=== PATIENT | female | born 1960 | race Caucasian/White ===

== ENCOUNTER 2018-07-05 17:27 | Emergency (ER) | payer BC ==
[2018-07-05 18:06] VITALS: BP 131/65
--- OUTSIDE RECORDS SUMMARY | 2018-07-05 18:27 | XMS REPORT ---
:1960 External Reference #:[id number] Author Organization [employer] Address [address] [place] [address] [place] [address] Phone [phone] Care Team Providers Name Role Phone Morgan Mayorga MD Primary Care Physician Unavailable Payers Type Date Identification Numbers Payment Provider Subscriber Commercial Policy Number: [id number] [facility] Sharath Malave PayID: [id number] [address] [place] [address] Problems Description No Information Family History Date Family Member(s) Problem(s) Comments Father Arthritis Mother Hypertension Social History Type Date Description Comments Lives With Spouse 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 ETOH Use Currently consumes alcohol one drink per day Smoking Patient has never smoked Exercise Type/Frequency Exercises regularly Allergies, Adverse Reactions, Alerts Date Description Reaction Status Severity Comments 05/18/2018 Codeine active 05/18/2018 Cortisone active Medications Medication Date Status Form Strength Qnty SIG Indications Ordering Provider Xolair Active Solution 150mg injection 2 Unknown 000 Rec times per month Medications Administered in Office Medication Date Status Form Strength Qnty SIG Indications Ordering Provider Triamcinolone Injection Zaneb (Kenalog) 2017 MD Ancelmo Vital Signs Date Vital Result Comment 07/01/2018 Height 63 inches 5'3" Weight 175.00 lb BP Systolic 120 mmHg BP Diastolic 70 mmHg Respiratory Rate 18 /min Pain Level 3 BMI (Body Mass Index) 31.0 kg/m2 05/18/2018 Height 63 inches 5'3" Weight 175.00 lb Heart Rate 76 /min BP Systolic Sitting 120 mmHg BP Diastolic Sitting 76 mmHg Respiratory Rate 16 /min Body Temperature 98.0 F Pain Level 3 BMI (Body Mass Index) 31.0 kg/m2 Results Description No Information Procedures Date CPT Code Description Status 05/18/2018 55215 Inject/Drain Joint/Bursa Major W/O US Completed Encounters Type Date Location Provider CPT E/M Dx Office Visit 05/18/2018 9:00a [facility] [place] [address] M75.31 [place] M75.42 M19.212 M19.012 Plan of Care Future Appointment(s):08/24/2018 1:30 pm - Mike Ag MD at [facility]
--- OUTSIDE RECORDS SUMMARY | 2018-07-05 18:27 | XMS REPORT ---
:1960 External Reference #:[id number] Author Organization [facility] Address [address] [place] [address] Phone [phone] Care Team Providers Name Role Phone Karan Jalloh M.D. Care Team Information Immunology Specialist Unavailable Morgan Mayorga M.D. Primary Care Physician Unavailable Payers Type Date Identification Numbers Payment Provider Subscriber Commercial Effective: Policy Number: [id number] [facility] Sharath Malave 1997 Healthcare Group Number: [id number] [address] Group Name: [place] [address] PayID: [id number] Problems Date Description Provider Status Onset: 04/14/2013 Extrinsic asthma without status Vianney Paul M.D. Active asthmaticus Onset: 04/14/2013 Allergic rhinitis Vianney Paul M.D. Active Onset: 04/14/2013 Allergic rhinitis due to pollen Vianney Paul M.D. Active Onset: 12/08/2016 Uncomplicated severe persistent Ronit PENELOPE Briceno Active asthma Onset: 06/19/2016 Body mass index (BMI) 19.9 or less, CINTHIA Krishna Active adult Onset: 01/21/2016 Body mass index 30+ - obesity Elpidio Bunch M.D. Active Onset: 08/23/2015 Body mass index 25-29 - overweight Jose Garcia M.D. Active Onset: 06/20/2015 Asthma Antonietta Johnson M.D. Active Onset: 06/20/2015 Allergic rhinitis due to animals Antonietta Johnson M.D. 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 Use Consumes 1 glass of wine per day Smoking Patient has never smoked Recreational Drug Use Denies Drug Use Allergies, Adverse Reactions, Alerts Date Description Reaction Status Severity Comments 08/27/2012 Codeine active abdominal 08/27/2012 Prednisone active causes high anxiety 07/27/2017 ALL Steroids active Causes high anxiety Medications Medication Date Status Form Strength Qnty SIG Indications Ordering Provider Levalbuterol 09/04 Active Aerosol 45mcg/Act 30gm 2 puffs every Ronit Tartrate 4-6 hours as Uldrich, needed for MANAGER PAYMENT-C cough, wheezing, shortness of breath and chest tightness Sterile Water 10/20 Active Solution 40uni Use To Vianney For Injection ts Reconstitute Marquis Paul. Onelia.DCamilla Single-Dose Vial(S), Discard After Use. Needle 25G X / Active [id number] 8unit For Use With Vianney s Xolair. Eileen Paul Xolair 06/23 Active Solution 150mg 4unit Reconstitute Rec s Each Of 2 Vials Dagobertorn, With 1.4ML M.D. Sterile Water. Inject 1.2ML Subcutaneously From 1St Vial And 0.6ML Sub-Q From 2ND Via Fexofenadine 05/17 Active Tablets 180mg 90tab 1 by mouth s every day as McNairnindu M.D. Medications Administered in Office Medication Date Status Form Strength Qnty SIG Indications Ordering Provider Xolair Administered Injection Shreyas Armas.DCamilla Xolair Administered Injection Antonietta Johnson M.D. Xolair Administered Injection Ronit 018 Uldrich, MANAGER PAYMENT-C Xolair Administered Injection Shreyas Mason M.D. Xolair Administered Injection Antonietta Rousseau Shreyas Johnson M.D. Xolair Administered Injection Ronit 018 Uldrich, MANAGER PAYMENT-C Xolair Administered Injection Antonietta Pritchett Eileen Johnson Xolair Administered Injection Ronit 018 Uldrich, MANAGER PAYMENT-C Xolair Administered Injection Ronit 018 Uldrich, MANAGER PAYMENT-C Xolair Administered Injection Ronit 018 Uldrich, MANAGER PAYMENT-C Xolair Administered Injection Antonietta Jackman Eileen Johnson Xolair Administered Injection Ronit 017 [place]rich, MANAGER PAYMENT-C Xolair Administered Injection Ronit 017 Uldrich, MANAGER PAYMENT-C Xolair Administered Injection Ronit 017 Uldrich, MANAGER PAYMENT-C Xolair Administered Injection Ronit 017 Uldrich, MANAGER PAYMENT-C Xolair Administered Injection Ronit 017 Uldrich, MANAGER PAYMENT-C Xolair Administered Injection Ronit 017 Uldrich, MANAGER PAYMENT-C Xolair Administered Injection Vianney Paul, Augustina Arellano Xolair Administered Injection Antonietta Jackman Eileen Johnson Xolair Administered Injection Ronit 017 [place]rich, MANAGER PAYMENT-C Xolair Administered Injection Ronit 017 Uldrich, MANAGER PAYMENT-C Xolair Administered Injection Ronit 017 Uldrich, MANAGER PAYMENT-C Xolair Administered Injection Ronit 017 Uldrich, MANAGER PAYMENT-C Xolair Administered Injection Ronit 017 Uldrich, MANAGER PAYMENT-C Xolair Administered Injection Ronit 017 Uldrich, MANAGER PAYMENT-C Xolair Administered Injection Vianney McRosalinadryumi, 017 M.D. Xolair Administered Injection Vianney McRosalindaryumi, 016 M.D. Xolair Administered Injection Jose Garcia M.D. Xolair Administered Injection Jose Garcia M.D. Xolair Administered Injection Vianney McRosalindaryumi, 016 M.D. Xolair Administered Injection Vianney McNairyumi, 016 M.D. Xolair Administered Injection Jaclyn 016 Fazal, MANAGER PAYMENT-C Xolair Administered Injection Vianney McRosalindaryumi, 016 M.D. Xolair Administered Injection Lanny Henao 016 Mccall, RPA-C Xolair Administered Injection Lanny Henao 016 Mccall, RPA-C Xolair Administered Injection Lanny Henao 016 Mccall, RPA-C Xolair Administered Injection Lanny Henao 016 Mccall, RPA-C Xolair Administered Injection Antonietta Onelia Johnson M.D. Xolair Administered Injection Elpidio Bunch, 016 Onelia.DCamilla Xolair Administered Injection Katelyn Lynette, 016 MANAGER PAYMENT-C Xolair Administered Injection Rosalinda Dana, 016 MANAGER PAYMENT-C Xolair Administered Injection Elpidio Bunch, 016 M.D. Xolair Administered Injection Rosalinda Dana, 016 MANAGER PAYMENT-C Xolair Administered Injection Rosalinda Dana, 016 MANAGER PAYMENT-C Xolair Administered Injection Rosalinda Dana, 016 MANAGER PAYMENT-C Xolair Administered Injection Jose Garcia M.D. Xolair Administered Injection Antoniettachris Johnson M.D. Xolair Administered Injection Antonietta Johnson M.D. Xolair Administered Injection Makayla Sharpe, PH.D, RPA-C Xolair Administered Injection Makayla 015 Annemarie, PH.D, RPA-C Xolair Administered Injection Makayla 015 Annemarie, PH.D, RPA-C Xolair Administered Injection Makayla 015 Annemarie, PH.D, RPA-C Xolair Administered Injection Makayla 015 Annemarie, PH.D, RPA-C Xolair Administered Injection Makayla 015 Annemarie, PH.D, RPA-C Xolair Administered Injection Makayla 015 Annemarie, PH.D, RPA-C Xolair Administered Injection Makayla 015 Annemarie, PH.D, RPA-C Xolair Administered Injection Makayla 015 Annemarie, PH.D, RPA-C Xolair Administered Injection Amkayla 015 Annemarie, PH.D, RPA-C Xolair Administered Injection Makayla 015 Annemarie, PH.D, RPA-C Xolair Administered Injection Daniela 014 Cal, RPA-C Xolair Administered Injection Daniela 014 Mccall, RPA-C Xolair Administered Injection Daniela 014 Mccall, RPA-C Xolair Administered Injection Daniela 014 Mccall, RPA-C Xolair Administered Injection Daniela 014 Mccall, RPA-C Xolair Administered Injection Hakan Karen Little M.D. Xolair Administered Injection Hakan Little M.D. Xolair Administered Injection Karen Mason M.D. Xolair Administered Injection Daniela 014 Cal, RPA-C Xolair Administered Injection Hakan Little M.D. Xolair Administered Injection Hakanbk Little M.D. Xolair Administered Injection Hakan 014 Eileen Little Xolair Administered Injection Elpidio Bunch, 014 Eileen Xolair Administered Injection Allergy 014 Injection Xolair Administered Injection Puja L. 014 Myrtle, MANAGER PAYMENT-C Xolair Administered Injection Allergy 014 Injection Xolair Administered Injection Puja L. 014 Myrtle, MANAGER PAYMENT-C Xolair Administered Injection Allergy 014 Injection Xolair Administered Injection Puja L. 014 Myrtle, MANAGER PAYMENT-C Xolair Administered Injection Puja L. 013 Myrtle, MANAGER PAYMENT-C Xolair Administered Injection Allergy 013 Injection Xolair Administered Injection Puja L. 013 Myrtle, MANAGER PAYMENT-C Xolair Administered Injection Puja L. 013 Myrtle, MANAGER PAYMENT-C Xolair Administered Injection Daniela 013 Cal, RPA-C Xolair Administered Injection Allergy 013 Injection Xolair Administered Injection Daniela 013 Cal, RPA-C Xolair Administered Injection Daniela 013 Cal, RPA-C Xolair Administered Injection Allergy 013 Injection Xolair Administered Injection Daniela 013 Cal, RPA-C Xolair Administered Injection Allergy 013 Injection Xolair Administered Injection Allergy 013 Injection Xolair Administered Injection Puja L. 013 Myrtle, MANAGER PAYMENT-C Xolair Administered Injection Daniela 013 Mccall, RPA-C Xolair Administered Injection Allergy 013 Injection Xolair Administered Injection Allergy 013 Injection Xolair Administered Injection Daniela 013 Cal, RPA-C Xolair Administered Injection Allergy 013 Injection Xolair Administered Injection Allergy 013 Injection Xolair Administered Injection Hakan Little M.D. Xolair Administered Injection Hakan Flora Little M.D. Xolair Administered Injection Hakan 013 Sidney, Eileen Xolair Administered Injection Hakan 012 Sidney, MLakisha Xolair Administered Injection Hakan 012 Sidney, M.DCamilla Xolair Administered Injection Hakan 012 Sidney, M.DCamilla Xolair Administered Injection Hakan 012 Sidney, Eileen Xolair Administered Injection Hakan 012 Sidney, MLakisha Xolair Administered Injection Hakan 012 Sidney, M.Christopher Xolair Administered Injection Hakan 012 Sidney, Eileen Xolair Administered Injection Hakan 012 Sidney, Eileen Xolair Administered Injection Hakan 012 Sidney, Eileen Xolair Administered Injection Hakan 012 Sidney, Eileen Xolair Administered Injection Hakan 012 Sidney, Eileen Xolair Administered Injection Hakan 012 Sidney, Eileen Xolair Administered Injection Hakan 012 Sidney, Eileen Xolair Administered Injection Hakan 012 Sidney, Eileen Xolair Administered Injection Hakan 012 Eileen Little Xolair Administered Injection Hakan 011 SidneyEileen reaves Xolair Administered Injection Hakan 011 Sidney, MLakisha Xolair Administered Injection Vianney Paul, 011 M.DCamilla Xolair Administered Injection Hakan 011 Sidney, Eileen Xolair Administered Injection Hakan 011 Sidney, MCamillaDCamilla Xolair Administered Injection Hakan 011 Sidney, MLakisha Xolair Administered Injection Hakan 011 Sidney, MLakisha Xolair Administered Injection Hakan 011 Eileen Little Xolair Administered Injection Hakan 011 Sidney, Eileen Xolair Administered Injection Hakan 011 Sidney, MLakisha Xolair Administered Injection Hakan 011 Sidney, Eileen Xolair Administered Injection Hakan 011 Sidney, Eileen Xolair Administered Injection Hakan 011 Sidney, MLakisha Xolair Administered Injection Hakan 011 Sidney, Eileen Xolair Administered Injection Hakan 011 Sidney, Eileen Xolair Administered Injection Hakan 011 Sidney, Eileen Xolair Administered Injection Hakan 010 Sidney, Eileen Xolair Administered Injection Hakan 010 Eileen Little Xolair Administered Injection Hakan 010 Eileen Little Xolair Administered Injection Hakan 010 Sidney, Eileen Xolair Administered Injection Tati Gautam 010 Xolair Administered Injection Hakan 010 Eileen Little Xolair Administered Injection Hakan 010 Eileen Little Xolair Administered Injection Tati Gautam 010 Xolair Administered Injection Hakan 010 Eileen Little Xolair Administered Injection Tesfayeopher ACamilla Sanchez M.D. Xolair Administered Injection Adalberto Sanchez M.D. Xolair Administered Injection Hakan 010 Sidney, Eileen Xolair Administered Injection Hakan 010 Sidney, Eileen Xolair Administered Injection Tesfayeopher ACamilla 010 Eileen Sanchez Xolair Administered Injection Hakan 010 Sidney, Eileen Xolair Administered Injection Hakan 010 Eileen Little Xolair Administered Injection Hakan 010 Eileen Little Xolair Administered Injection Hakan 010 Eileen Little Xolair Administered Injection Hakan 010 Sidney, Eileen Xolair Administered Injection Hakan 010 Eileen Little Xolair Administered Injection Hakan 010 Eileen Little Xolair Administered Injection Hakan 009 Eileen Little Xolair Administered Injection Hakan 009 Eileen Little Xolair Administered Injection Tati Gautam, 009 Xolair Administered Injection Adalberto Sanchez M.D. Xolair Administered Injection Hakan 009 Eileen Little Xolair Administered Injection Hakan 009 Eileen Little Xolair Administered Injection Hakan 009 Eileen Little Xolair Administered Injection Hakan 009 Eileen Little Xolair Administered Injection Hakan 009 Eileen Little Xolair Administered Injection Hakan 009 Eileen Little Xolair Administered Injection Quentintrinity Jiang M.D. Xolair Administered Injection Tati Gautam, 009 Xolair Administered Injection Tati Gautam, 009 Xolair Administered Injection Tati Gautam, 009 Xolair Administered Injection Hakan 009 Eileen Little Xolair Administered Injection Hakan 009 Eileen Little Xolair Administered Injection Hakan 009 Eileen Little Xolair Administered Injection Hakan 009 Eileen Little Xolair Administered Injection Qeuntin 009 Eileen Jiang Xolair Administered Injection Tati Dain, 009 Xolair Administered Injection Quentin 009 Eileen Jiang Xolair Administered Injection Hakan 009 Eileen Little Xolair Administered Injection Quentin 009 Eileen Jiang Xolair Administered Injection Hakan 008 Eileen Little Xolair Administered Injection Tati Dain, 008 Xolair Administered Injection Quentin 008 Eileen Jiang Xolair Administered Injection Quentin 008 Eileen Jiang Xolair Administered Injection Hakan 008 Eileen Little Xolair Administered Injection Hakan 008 Eileen Little Xolair Administered Injection Hakan 008 Eileen Little Xolair Administered Injection Hakan 008 Eileen Little Xolair Administered Injection Hakan 008 Eileen Little Xolair Administered Injection Hakan 008 Eileen Little Xolair Administered Injection Hakan 008 Eileen Little Xolair Administered Injection Hakan 008 Eileen Little Xolair Administered Injection Hakan 008 Eileen Little Xolair Administered Injection Hakan 008 Eileen Little Xolair Administered Injection Hakan 008 Eileen Little Xolair Administered Injection Hakan 008 Eileen Little Xolair Administered Injection Hakan 008 Eileen Little Xolair Administered Injection Hakan 008 Eileen Little Xolair Administered Injection Quentin 008 Eileen Jiang Xolair Administered Injection Hakan 008 Lan Little. Xolair Administered Injection Hakan 008 Eileen Little Xolair Administered Injection Hakan 008 Eileen Little Xolair Administered Injection Hakan 007 Eileen Little Xolair Administered Injection Hakan 007 Eileen Little Xolair Administered Injection Hakan 007 Eileen Little Xolair Administered Injection Hakan 007 Eileen Little Xolair Administered Injection Hakan 007 Eileen Little Xolair Administered Injection Hakan 007 Eileen Little Xolair Administered Injection Hakan 007 Eileen Little Xolair Administered Injection Hakanbk Little M.D. Xolair Administered Injection Quentin Krystin Jiang M.D. Xolair Administered Injection Hakanbk Little M.D. Xolair Administered Injection Hakan 007 Eileen Little Xolair Administered Injection Quentin 007 Eileen Jiang Xolair Administered Injection Hakan Krystin Little M.D. Xolair Administered Injection Hakanbk Little M.D. Xolair Administered Injection Hakan Krystin Little M.D. Xolair Administered Injection Hakan Krystin Little M.D. Xolair Administered Injection Hakan Krystin Little M.D. Xolair Administered Injection Hakanbk Little M.D. Immunizations CPT Code Status Date Vaccine Lot # 68009 Given 07/22/2015 Influenza Vaccine 20252 Given 06/21/2013 Influenza Vaccine 37658 Given Unknown Influenza Vaccine 50518 Given Unknown Influenza Vaccine 71068 Given Unknown Influenza Vaccine 3 Years Old + Vital Signs Date Vital Result Comment 06/17/2018 Height 63 inches 5'3" Weight 170.00 lb Weight in kg's 77.112 Respiratory Rate 20 /min Heart Rate 86 /min O2 % BldC Oximetry 98 % BP Systolic 116 mmHg BP Diastolic 78 mmHg [facility] Test 18 BMI (Body Mass Index) 30.1 kg/m2 04/15/2018 Height 63 inches 5'3" Weight 170.00 lb Weight in kg's 77.112 Respiratory Rate 18 /min Heart Rate 67 /min O2 % BldC Oximetry 98 % BP Systolic 102 mmHg BP Diastolic 60 mmHg [facility] Control Test 22 BMI (Body Mass Index) 30.1 kg/m2 04/01/2018 Height 63 inches 5'3" Weight 170.00 lb Weight in kg's 77.112 Respiratory Rate 20 /min Heart Rate 69 /min O2 % BldC Oximetry 98 % BP Systolic 115 mmHg BP Diastolic 61 mmHg [facility] Control Test 24 BMI (Body Mass Index) 30.1 kg/m2 03/10/2018 Height 63 inches 5'3" Weight 170.00 lb Weight in kg's 77.112 Respiratory Rate 20 /min Heart Rate 84 /min O2 % BldC Oximetry 97 % BP Systolic 114 mmHg BP Diastolic 72 mmHg [facility] Control Test 23 BMI (Body Mass Index) 30.1 kg/m2 01/18/2018 Height 63 inches 5'3" Weight 170.00 lb Weight in kg's 77.112 Respiratory Rate 20 /min Heart Rate 71 /min O2 % BldC Oximetry 98 % BP Systolic 117 mmHg BP Diastolic 73 mmHg [facility] Control Test 24 BMI (Body Mass Index) 30.1 kg/m2 12/17/2017 Height 63 inches 5'3" Weight 170.00 lb Weight in kg's 77.112 Respiratory Rate 18 /min Heart Rate 58 /min O2 % BldC Oximetry 98 % BP Systolic 105 mmHg BP Diastolic 69 mmHg [facility] Control Test 23 BMI (Body Mass Index) 30.1 kg/m2 10/23/2017 Height 63 inches 5'3" Weight 170.00 lb Patient stated Weight in kg's 77.112 Respiratory Rate 16 /min Heart Rate 83 /min O2 % BldC Oximetry 97 % BP Systolic 107 mmHg BP Diastolic 71 mmHg [facility] Control Test 23 BMI (Body Mass Index) 30.1 kg/m2 10/05/2017 Height 63 inches 5'3" Weight 170.00 lb Weight in kg's 77.112 Respiratory Rate 18 /min Heart Rate 70 /min O2 % BldC Oximetry 98 % BP Systolic 122 mmHg BP Diastolic 71 mmHg [facility] Test 23 BMI (Body Mass Index) 30.1 kg/m2 09/04/2017 Height 63 inches 5'3" Weight 170.00 lb Weight in kg's 77.112 Respiratory Rate 18 /min Heart Rate 85 /min O2 % BldC Oximetry 98 % BP Systolic 110 mmHg BP Diastolic 70 mmHg [facility] Test 24 BMI (Body Mass Index) 30.1 kg/m2 08/21/2017 Height 63 inches 5'3" Weight 170.00 lb Weight in kg's 77.112 Respiratory Rate 20 /min Heart Rate 73 /min O2 % BldC Oximetry 97 % BP Systolic 119 mmHg BP Diastolic 68 mmHg [facility] Test 23 BMI (Body Mass Index) 30.1 kg/m2 07/27/2017 Height 63 inches 5'3" Weight 170.00 lb Patient stated Weight in kg's 77.112 Respiratory Rate 20 /min Heart Rate 79 /min O2 % BldC Oximetry 98 % BP Systolic 110 mmHg BP Diastolic 71 mmHg BMI (Body Mass Index) 30.1 kg/m2 06/22/2017 Height 63 inches 5'3" Weight 170.00 lb declined used last updated in chart Weight in kg's 77.112 Respiratory Rate 20 /min Heart Rate 76 /min O2 % BldC Oximetry 97 % BP Systolic 112 mmHg BP Diastolic 73 mmHg [facility] Test 23 BMI (Body Mass Index) 30.1 kg/m2 05/29/2017 Height 63 inches 5'3" Respiratory Rate 16 /min Heart Rate 82 /min O2 % BldC Oximetry 97 % BP Systolic 124 mmHg BP Diastolic 70 mmHg [facility] Control Test 23 05/18/2017 Height 63 inches 5'3" Respiratory Rate 20 /min Heart Rate 68 /min O2 % BldC Oximetry 99 % BP Systolic 125 mmHg BP Diastolic 76 mmHg [facility] Control Test 24 04/22/2017 Height 63 inches 5'3" Weight 170.00 lb Weight in kg's 77.112 Respiratory Rate 16 /min Heart Rate 86 /min O2 % BldC Oximetry 98 % BP Systolic 107 mmHg BP Diastolic 67 mmHg [facility] Test 23 BMI (Body Mass Index) 30.1 kg/m2 03/09/2017 Height 63 inches 5'3" pt stated Weight 170.00 lb Weight in kg's 77.112 Respiratory Rate 20 /min Heart Rate 69 /min O2 % BldC Oximetry 99 % BP Systolic 119 mmHg BP Diastolic 71 mmHg [facility] Test 22 BMI (Body Mass Index) 30.1 kg/m2 02/20/2017 Height 63 inches 5'3" pt stated Weight 170.00 lb pt stated Weight in kg's 77.112 Respiratory Rate 20 /min Heart Rate 80 /min O2 % BldC Oximetry 98 % BP Systolic 113 mmHg BP Diastolic 70 mmHg [facility] Test 23 BMI (Body Mass Index) 30.1 kg/m2 01/28/2017 Weight 170.00 lb Weight in kg's 77.112 Respiratory Rate 18 /min Heart Rate 77 /min O2 % BldC Oximetry 98 % BP Systolic 116 mmHg BP Diastolic 64 mmHg [facility] Control Test 21 01/07/2017 Respiratory Rate 24 /min Heart Rate 78 /min O2 % BldC Oximetry 98 % BP Systolic 105 mmHg BP Diastolic 65 mmHg [facility] Test 22 12/22/2016 Respiratory Rate 16 /min Heart Rate 76 /min O2 % BldC Oximetry 96 % BP Systolic 113 mmHg BP Diastolic 75 mmHg [facility] Test 22 12/08/2016 Height 62.75 inches 5'2.75" Weight 170.00 lb patient stated Weight in kg's 77.112 Respiratory Rate 20 /min Heart Rate 74 /min O2 % BldC Oximetry 97 % BP Systolic 103 mmHg BP Diastolic 61 mmHg [facility] Test 24 BMI (Body Mass Index) 30.4 kg/m2 11/14/2016 Height 62.75 inches 5'2.75" Respiratory Rate 20 /min Heart Rate 80 /min O2 % BldC Oximetry 97 % BP Systolic 104 mmHg BP Diastolic 66 mmHg [facility] Control Test 09/18/2016 Height 62.75 inches 5'2.75" Respiratory Rate 24 /min Heart Rate 78 /min O2 % BldC Oximetry 99 % BP Systolic 102 mmHg BP Diastolic 69 mmHg [facility] Control Test 08/21/2016 Height 62.75 inches 5'2.75" Respiratory Rate 18 /min Heart Rate 90 /min O2 % BldC Oximetry 95 % BP Systolic 110 mmHg BP Diastolic 47 mmHg [facility] Control Test 08/06/2016 Height 62.75 inches 5'2.75" Respiratory Rate 16 /min Heart Rate 78 /min O2 % BldC Oximetry 97 % BP Systolic 107 mmHg BP Diastolic 67 mmHg [facility] Test 23 07/23/2016 Height 62.75 inches 5'2.75" Respiratory Rate 16 /min Heart Rate 71 /min O2 % BldC Oximetry 97 % BP Systolic 103 mmHg BP Diastolic 49 mmHg [facility] Test 23 07/09/2016 Height 62.75 inches 5'2.75" Weight 170.00 lb Weight in kg's 77.112 Respiratory Rate 16 /min Heart Rate 79 /min O2 % BldC Oximetry 98 % BP Systolic 105 mmHg BP Diastolic 67 mmHg [facility] Test 23 BMI (Body Mass Index) 30.4 kg/m2 06/19/2016 Height 62.75 inches 5'2.75" Weight 107.00 lb Pt refused Weight in kg's 48.535 Respiratory Rate 16 /min Heart Rate 93 /min O2 % BldC Oximetry 97 % BP Systolic 107 mmHg BP Diastolic 68 mmHg [facility] Control Test 23 BMI (Body Mass Index) 19.1 kg/m2 06/04/2016 Height 62.75 inches 5'2.75" Respiratory Rate 20 /min Heart Rate 70 /min O2 % BldC Oximetry 98 % BP Systolic 107 mmHg BP Diastolic 68 mmHg [facility] Control Test 23 05/19/2016 Height 62.75 inches 5'2.75" Weight 170.00 lb patient stated Weight in kg's 77.112 Respiratory Rate 16 /min Heart Rate 69 /min O2 % BldC Oximetry 98 % BP Systolic 99 mmHg BP Diastolic 84 mmHg [facility] Control Test 24 BMI (Body Mass Index) 30.4 kg/m2 04/30/2016 Height 62.75 inches 5'2.75" Weight 170.00 lb Weight in kg's 77.112 Respiratory Rate 16 /min Heart Rate 72 /min O2 % BldC Oximetry 98 % BP Systolic 120 mmHg BP Diastolic 71 mmHg [facility] Control Test 22 BMI (Body Mass Index) 30.4 kg/m2 04/14/2016 Height 62.75 inches 5'2.75" Weight 170.00 lb Weight in kg's 77.112 Respiratory Rate 16 /min Heart Rate 72 /min O2 % BldC Oximetry 99 % BP Systolic 115 mmHg BP Diastolic 72 mmHg BMI (Body Mass Index) 30.4 kg/m2 03/26/2016 Height 62.75 inches 5'2.75" Weight 170.00 lb Weight in kg's 77.112 Respiratory Rate 16 /min Heart Rate 72 /min O2 % BldC Oximetry 98 % BP Systolic 102 mmHg BP Diastolic 61 mmHg [facility] Control Test 22 BMI (Body Mass Index) 30.4 kg/m2 02/06/2016 Height 62.75 inches 5'2.75" Weight 170.00 lb Patient stated Weight in kg's 77.112 Respiratory Rate 16 /min Heart Rate 68 /min O2 % BldC Oximetry 98 % BP Systolic 98 mmHg BP Diastolic 60 mmHg [facility] Control Test 24 BMI (Body Mass Index) 30.4 kg/m2 01/21/2016 Height 62.75 inches 5'2.75" Weight 170.00 lb Weight in kg's 77.112 Respiratory Rate 16 /min Heart Rate 66 /min O2 % BldC Oximetry 98 % BP Systolic 104 mmHg BP Diastolic 65 mmHg [facility] Control Test 24 BMI (Body Mass Index) 30.4 kg/m2 01/03/2016 Height 62.75 inches 5'2.75" Weight 170.00 lb Weight in kg's 77.112 Respiratory Rate 20 /min Heart Rate 68 /min O2 % BldC Oximetry 98 % BP Systolic 88 mmHg BP Diastolic 52 mmHg [facility] Control Test 22 BMI (Body Mass Index) 30.4 kg/m2 12/17/2015 Height 62.75 inches 5'2.75" Weight 170.00 lb Patient stated Weight in kg's 77.112 Respiratory Rate 20 /min Heart Rate 76 /min O2 % BldC Oximetry 98 % BP Systolic 89 mmHg BP Diastolic 57 mmHg [facility] Control Test 23 BMI (Body Mass Index) 30.4 kg/m2 12/03/2015 Height 62.75 inches 5'2.75" Weight 165.00 lb Weight in kg's 74.844 Respiratory Rate 16 /min Heart Rate 65 /min Body Temperature 23.0 F O2 % BldC Oximetry 99 % BP Systolic 118 mmHg BP Diastolic 69 mmHg Asthma Control Test 23 BMI (Body Mass Index) 29.5 kg/m2 11/16/2015 Height 62.75 inches 5'2.75" Weight 165.00 lb patietn refused Weight in kg's 74.844 Respiratory Rate 18 /min Heart Rate 69 /min O2 % BldC Oximetry 98 % BP Systolic 114 mmHg BP Diastolic 74 mmHg Asthma Control Test 19 BMI (Body Mass Index) 29.5 kg/m2 10/31/2015 Height 62.75 inches 5'2.75" Weight 165.00 lb Pt verbalized- refused to be weighed Weight in kg's 74.844 Respiratory Rate 20 /min Heart Rate 70 /min O2 % BldC Oximetry 98 % BP Systolic 92 mmHg BP Diastolic 54 mmHg Asthma Control Test 24 BMI (Body Mass Index) 29.5 kg/m2 10/12/2015 Height 62.75 inches 5'2.75" Weight 165.00 lb patient stated Weight in kg's 74.844 Respiratory Rate 20 /min Heart Rate 82 /min O2 % BldC Oximetry 96 % BP Systolic 98 mmHg BP Diastolic 60 mmHg Asthma Control Test 24 BMI (Body Mass Index) 29.5 kg/m2 08/23/2015 Height 62.75 inches 5'2.75" Weight 165.00 lb per pt Weight in kg's 74.844 Respiratory Rate 20 /min Heart Rate 77 /min O2 % BldC Oximetry 97 % BP Systolic 104 mmHg BP Diastolic 65 mmHg BMI (Body Mass Index) 29.5 kg/m2 07/04/2015 Height 62.75 inches 5'2.75" Weight 165.00 lb Weight in kg's 74.844 Respiratory Rate 16 /min Heart Rate 63 /min O2 % BldC Oximetry 98 % BP Systolic 96 mmHg BP Diastolic 63 mmHg Asthma Control Test 23 BMI (Body Mass Index) 29.5 kg/m2 06/20/2015 Height 62.75 inches 5'2.75" pt stated Weight 165.00 lb Weight in kg's 74.844 Respiratory Rate 16 /min Heart Rate 85 /min O2 % BldC Oximetry 98 % BP Systolic 95 mmHg BP Diastolic 61 mmHg Asthma Control Test 24 BMI (Body Mass Index) 29.5 kg/m2 06/01/2015 Height 62.75 inches 5'2.75" pt stated Weight 165.00 lb Patient stated Weight in kg's 74.844 Respiratory Rate 18 /min Heart Rate 71 /min O2 % BldC Oximetry 98 % BP Systolic 112 mmHg BP Diastolic 80 mmHg Asthma Control Test 24 BMI (Body Mass Index) 29.5 kg/m2 05/16/2015 Height 62.75 inches 5'2.75" pt stated Weight 165.00 lb Pt stated Weight in kg's 74.844 Respiratory Rate 18 /min Heart Rate 63 /min O2 % BldC Oximetry 98 % BP Systolic 112 mmHg BP Diastolic 62 mmHg Asthma Control Test 24 BMI (Body Mass Index) 29.5 kg/m2 04/25/2015 Height 62.75 inches 5'2.75" pt stated Weight 165.00 lb Weight in kg's 74.844 Respiratory Rate 18 /min Heart Rate 63 /min O2 % BldC Oximetry 98 % BP Systolic 100 mmHg BP Diastolic 57 mmHg Asthma Control Test 24 BMI (Body Mass Index) 29.5 kg/m2 04/11/2015 Height 62.75 inches 5'2.75" pt stated Weight 165.00 lb Weight in kg's 74.844 Respiratory Rate 16 /min Heart Rate 72 /min O2 % BldC Oximetry 97 % BP Systolic 121 mmHg BP Diastolic 73 mmHg Asthma Control Test 24 BMI (Body Mass Index) 29.5 kg/m2 02/07/2015 Height 62.75 inches 5'2.75" pt stated Weight 165.00 lb pt stated Weight in kg's 74.844 Respiratory Rate 16 /min Heart Rate 70 /min O2 % BldC Oximetry 99 % BP Systolic 110 mmHg BP Diastolic 60 mmHg Asthma Control Test 24 BMI (Body Mass Index) 29.5 kg/m2 01/22/2015 Height 62.75 inches 5'2.75" pt stated Weight 165.00 lb per pt. Weight in kg's 74.844 Respiratory Rate 18 /min Heart Rate 76 /min O2 % BldC Oximetry 97 % BP Systolic 112 mmHg BP Diastolic 64 mmHg BMI (Body Mass Index) 29.5 kg/m2 12/25/2014 Height 62.75 inches 5'2.75" pt stated Respiratory Rate 16 /min Heart Rate 75 /min O2 % BldC Oximetry 97 % BP Systolic 114 mmHg BP Diastolic 60 mmHg 12/11/2014 Height 62.75 inches 5'2.75" pt stated Weight 165.00 lb pt stated Weight in kg's 74.844 Respiratory Rate 20 /min Heart Rate 68 /min O2 % BldC Oximetry 98 % BP Systolic 100 mmHg BP Diastolic 68 mmHg Asthma Control Test 23 BMI (Body Mass Index) 29.5 kg/m2 11/27/2014 Height 62.75 inches 5'2.75" Weight 165.00 lb per patient Weight in kg's 74.844 Respiratory Rate 18 /min Heart Rate 68 /min O2 % BldC Oximetry 97 % BP Systolic 108 mmHg BP Diastolic 64 mmHg BMI (Body Mass Index) 29.5 kg/m2 11/27/2014 Height 62.75 inches 5'2.75" 10/13/2014 Height 62.75 inches 5'2.75" Weight 165.00 lb Weight in kg's 74.844 Respiratory Rate 24 /min Heart Rate 71 /min O2 % BldC Oximetry 98 % BP Systolic 100 mmHg BP Diastolic 70 mmHg Asthma Control Test 23 BMI (Body Mass Index) 29.5 kg/m2 10/02/2014 Height 62.75 inches 5'2.75" Weight 165.00 lb Weight in kg's 74.844 Respiratory Rate 16 /min Heart Rate 74 /min O2 % BldC Oximetry 98 % BP Systolic 115 mmHg BP Diastolic 70 mmHg Asthma Control Test 23 BMI (Body Mass Index) 29.5 kg/m2 09/04/2014 Height 63 inches 5'3" pt stated Weight 162.00 lb pt stated Weight in kg's 73.483 Respiratory Rate 24 /min Heart Rate 71 /min O2 % BldC Oximetry 98 % BP Systolic 115 mmHg BP Diastolic 70 mmHg Asthma Control Test 24 BMI (Body Mass Index) 28.7 kg/m2 08/21/2014 Height 63 inches 5'3" patient stated Weight 162.00 lb Patient stated Weight in kg's 73.483 Respiratory Rate 20 /min Heart Rate 72 /min O2 % BldC Oximetry 96 % BP Systolic 100 mmHg BP Diastolic 65 mmHg Asthma Control Test 23 BMI (Body Mass Index) 28.7 kg/m2 08/07/2014 Height 63 inches 5'3" Weight 162.00 lb Weight in kg's 73.483 Respiratory Rate 16 /min Heart Rate 74 /min O2 % BldC Oximetry 98 % BP Systolic 118 mmHg BP Diastolic 60 mmHg Asthma Control Test 23 BMI (Body Mass Index) 28.7 kg/m2 07/14/2014 Height 63 inches 5'3" Weight 162.00 lb per PT Weight in kg's 73.483 Respiratory Rate 16 /min Heart Rate 71 /min O2 % BldC Oximetry 98 % BP Systolic 110 mmHg BP Diastolic 60 mmHg Asthma Control Test 22 BMI (Body Mass Index) 28.7 kg/m2 06/28/2014 Respiratory Rate 16 /min Heart Rate 70 /min O2 % BldC Oximetry 97 % BP Systolic 104 mmHg BP Diastolic 64 mmHg Asthma Control Test 22 06/14/2014 Height 63 inches 5'3" Respiratory Rate 18 /min Heart Rate 71 /min O2 % BldC Oximetry 98 % BP Systolic 118 mmHg BP Diastolic 62 mmHg Asthma Control Test 18 05/31/2014 Respiratory Rate 16 /min Heart Rate 70 /min O2 % BldC Oximetry 97 % BP Systolic 118 mmHg BP Diastolic 76 mmHg Asthma Control Test 23 05/17/2014 Height 63 inches 5'3" Weight 163.00 lb Pt verbalized. refused to get on scale Weight in kg's 73.937 Respiratory Rate 16 /min Heart Rate 72 /min O2 % BldC Oximetry 95 % BP Systolic 112 mmHg BP Diastolic 76 mmHg Asthma Control Test 23 BMI (Body Mass Index) 28.9 kg/m2 05/03/2014 Respiratory Rate 16 /min Heart Rate 80 /min O2 % BldC Oximetry 97 % BP Systolic 104 mmHg BP Diastolic 72 mmHg Asthma Control Test 24 03/22/2014 Weight 163.00 lb Weight in kg's 73.937 Respiratory Rate 18 /min Heart Rate 72 /min O2 % BldC Oximetry 98 % BP Systolic 100 mmHg BP Diastolic 58 mmHg Asthma Control Test 23 03/08/2014 Height 63 inches 5'3" Weight 163.00 lb pt verbalized Weight in kg's 73.937 Respiratory Rate 14 /min Heart Rate 61 /min O2 % BldC Oximetry 98 % BP Systolic 112 mmHg BP Diastolic 74 mmHg Asthma Control Test 23 BMI (Body Mass Index) 28.9 kg/m2 02/22/2014 Height 63 inches per pt Weight 163.00 lb per pt Weight in kg's 73.937 Respiratory Rate 12 /min Heart Rate 65 /min O2 % BldC Oximetry 98 % BP Systolic 100 mmHg BP Diastolic 70 mmHg Asthma Control Test 22 BMI (Body Mass Index) 28.9 kg/m2 02/06/2014 Height 63 inches 5'3" per pt Weight 160.00 lb Weight in kg's 72.576 Respiratory Rate 16 /min Heart Rate 81 /min O2 % BldC Oximetry 98 % BP Systolic 112 mmHg BP Diastolic 68 mmHg Asthma Control Test 22 BMI (Body Mass Index) 28.3 kg/m2 12/23/2013 Height 63 inches 5'3" per pt Weight 160.00 lb Per pt Weight in kg's 72.576 Respiratory Rate 16 /min Heart Rate 80 /min O2 % BldC Oximetry 97 % BP Systolic 118 mmHg BP Diastolic 70 mmHg BMI (Body Mass Index) 28.3 kg/m2 11/23/2013 Respiratory Rate 16 /min Heart Rate 76 /min O2 % BldC Oximetry 98 % BP Systolic 128 mmHg BP Diastolic 78 mmHg Asthma Control Test 23 10/31/2013 Height 63 inches 5'3" Weight 160.00 lb pt verbalized weight Weight in kg's 72.576 Respiratory Rate 14 /min Heart Rate 76 /min O2 % BldC Oximetry 98 % BP Systolic 114 mmHg BP Diastolic 72 mmHg BMI (Body Mass Index) 28.3 kg/m2 09/09/2013 Respiratory Rate 16 /min Heart Rate 70 /min O2 % BldC Oximetry 98 % BP Systolic 100 mmHg BP Diastolic 62 mmHg 08/26/2013 Height 63 inches 5'3" Weight 160.00 lb Stated per patient. Weight in kg's 72.576 Respiratory Rate 16 /min Heart Rate 72 /min O2 % BldC Oximetry 98 % BP Systolic 102 mmHg BP Diastolic 68 mmHg BMI (Body Mass Index) 28.3 kg/m2 08/08/2013 Height 63 inches 5'3" Weight 160.00 lb Stated per patient Weight in kg's 72.576 Heart Rate 78 /min O2 % BldC Oximetry 98 % BP Systolic 106 mmHg BP Diastolic 68 mmHg Asthma Control Test 22 BMI (Body Mass Index) 28.3 kg/m2 07/15/2013 Height 63 inches 5'3" Weight 160.00 lb Weight in kg's 72.576 Respiratory Rate 18 /min Heart Rate 75 /min O2 % BldC Oximetry 98 % BP Systolic 98 mmHg BP Diastolic 60 mmHg BMI (Body Mass Index) 28.3 kg/m2 06/17/2013 Height 63 inches 5'3" Weight 160.00 lb per pt Weight in kg's 72.576 Respiratory Rate 16 /min Heart Rate 75 /min O2 % BldC Oximetry 98 % BP Systolic 100 mmHg BP Diastolic 60 mmHg BMI (Body Mass Index) 28.3 kg/m2 06/01/2013 Height 63 inches 5'3" Weight 160.00 lb Weight in kg's 72.576 Respiratory Rate 16 /min Heart Rate 74 /min O2 % BldC Oximetry 99 % BP Systolic 108 mmHg BP Diastolic 72 mmHg BMI (Body Mass Index) 28.3 kg/m2 05/18/2013 Heart Rate 71 /min O2 % BldC Oximetry 98 % BP Systolic 112 mmHg BP Diastolic 64 mmHg 04/14/2013 Heart Rate 72 /min O2 % BldC Oximetry 98 % BP Systolic 112 mmHg BP Diastolic 78 mmHg 03/21/2013 Height 63 inches 5'3" Weight 160.00 lb Weight in kg's 72.576 Respiratory Rate 18 /min Heart Rate 71 /min O2 % BldC Oximetry 97 % BP Systolic 126 mmHg BP Diastolic 72 mmHg BMI (Body Mass Index) 28.3 kg/m2 02/09/2013 Weight 160.00 lb Weight in kg's 72.576 Respiratory Rate 18 /min Heart Rate 76 /min O2 % BldC Oximetry 98 % BP Systolic 104 mmHg BP Diastolic 68 mmHg 01/21/2013 Weight 160.00 lb Weight in kg's 72.576 Respiratory Rate 18 /min Heart Rate 83 /min O2 % BldC Oximetry 99 % BP Systolic 100 mmHg BP Diastolic 68 mmHg 12/29/2012 Respiratory Rate 20 /min Heart Rate 70 /min O2 % BldC Oximetry 98 % BP Systolic 112 mmHg BP Diastolic 68 mmHg 12/15/2012 Respiratory Rate 20 /min Heart Rate 69 /min O2 % BldC Oximetry 98 % BP Systolic 110 mmHg BP Diastolic 60 mmHg 12/01/2012 Height 63 inches 5'3" Weight 161.00 lb Weight in kg's 73.030 Respiratory Rate 16 /min Heart Rate 69 /min O2 % BldC Oximetry 99 % BP Systolic 110 mmHg BP Diastolic 76 mmHg BMI (Body Mass Index) 28.5 kg/m2 11/17/2012 Height 63 inches 5'3" Respiratory Rate 16 /min Heart Rate 72 /min O2 % BldC Oximetry 97 % BP Systolic 114 mmHg BP Diastolic 78 mmHg 09/29/2012 Height 63 inches 5'3" Weight 161.00 lb Weight in kg's 73.030 Respiratory Rate 16 /min Heart Rate 72 /min O2 % BldC Oximetry 98 % BP Systolic 100 mmHg BP Diastolic 68 mmHg BMI (Body Mass Index) 28.5 kg/m2 09/29/2012 Respiratory Rate 18 /min Heart Rate 72 /min O2 % BldC Oximetry 98 % BP Systolic 100 mmHg BP Diastolic 68 mmHg 08/27/2012 Respiratory Rate 16 /min Heart Rate 71 /min BP Systolic 110 mmHg BP Diastolic 75 mmHg 07/19/2012 Respiratory Rate 14 /min Heart Rate 74 /min Results Description No Information Procedures Date CPT Code Description Status 04/15/2018 67919 Xolair Completed 04/01/2018 22641 Xolair Completed 04/01/2018 17379 Xolair Completed 03/10/2018 07814 Xolair Completed 01/18/2018 91922 Xolair Completed 01/18/2018 59504 Xolair Completed 12/17/2017 60615 Xolair Completed 12/17/2017 81816 Xolair Completed 10/23/2017 99652 Xolair Completed 10/05/2017 72712 Xolair Completed 09/04/2017 77212 Xolair Completed 09/04/2017 34785 Xolair Completed 09/04/2017 47960 Pre PFT Completed 09/04/2017 03697 Pre PFT Completed 08/21/2017 09979 Xolair Completed 07/27/2017 39625 Xolair Completed 06/22/2017 80976 Xolair Completed 05/29/2017 87228 Xolair Completed 05/18/2017 07889 Xolair Completed 04/22/2017 62252 Xolair Completed 03/09/2017 57813 Xolair Completed 03/09/2017 73286 Xolair Completed 02/20/2017 95843 Xolair Completed 01/28/2017 04291 Xolair Completed 01/07/2017 28656 Xolair Completed 12/22/2016 91110 Xolair Completed 12/08/2016 43736 Xolair Completed 11/14/2016 00160 Xolair Completed 09/18/2016 90906 Xolair Completed 08/21/2016 44018 Xolair Completed 08/06/2016 07607 Xolair Completed 07/23/2016 84399 Xolair Completed 07/09/2016 15258 Xolair Completed 06/19/2016 60563 Xolair Completed 06/04/2016 70062 Xolair Completed 05/19/2016 27723 Xolair Completed 04/30/2016 50561 Xolair Completed 04/14/2016 58017 Xolair Completed 03/26/2016 46129 Xolair Completed 02/06/2016 95133 Xolair Completed 01/21/2016 62934 Xolair Completed 01/03/2016 47344 Xolair Completed 12/17/2015 97587 Xolair Completed 12/03/2015 86959 Xolair Completed 11/16/2015 83301 Xolair Completed 10/31/2015 87609 Xolair Completed 10/31/2015 42913 Pre PFT Completed 10/12/2015 29396 Xolair Completed 08/23/2015 23933 Xolair Completed 07/04/2015 04388 Xolair Completed 06/20/2015 60741 Xolair Completed 06/01/2015 84779 Xolair Completed 05/16/2015 55635 Xolair Completed 04/25/2015 05384 Xolair Completed 04/25/2015 33300 Pre PFT Completed 04/11/2015 77378 Xolair Completed 02/07/2015 97094 Xolair Completed 01/22/2015 80724 Xolair Completed 12/25/2014 63290 Xolair Completed 12/11/2014 85102 Xolair Completed 11/27/2014 23113 Xolair Completed 10/13/2014 79510 Xolair Completed 10/02/2014 09509 Xolair Completed 09/04/2014 84953 Xolair Completed 08/21/2014 82767 Xolair Completed 08/07/2014 83660 Xolair Completed 07/14/2014 58044 Xolair Completed 06/28/2014 63501 Xolair Completed 06/14/2014 58424 Xolair Completed 05/31/2014 39997 Xolair Completed 05/17/2014 95165 Xolair Completed 05/03/2014 84290 Xolair Completed 03/22/2014 17231 Xolair Completed 03/08/2014 57893 Xolair Completed 02/22/2014 61386 Xolair Completed 02/06/2014 70332 Xolair Completed 12/23/2013 96645 Xolair Completed 12/23/2013 88859 Xolair Completed 11/23/2013 35916 Xolair Completed 11/23/2013 83891 Xolair Completed 10/31/2013 96643 Xolair Completed 10/31/2013 36510 Xolair Completed 09/09/2013 03761 Xolair Completed 09/09/2013 87284 Oxygen Level - Pulse Oximiter Completed 08/26/2013 24546 Xolair Completed 08/26/2013 04364 Xolair Completed 08/26/2013 56048 Oxygen Level - Pulse Oximiter Completed 08/08/2013 16693 Oxygen Level - Pulse Oximiter Completed 08/08/2013 03325 Xolair Completed 07/15/2013 45600 Xolair Completed 07/15/2013 03196 Oxygen Level - Pulse Oximiter Completed 06/17/2013 47544 Xolair Completed 06/17/2013 33099 Xolair Completed 06/17/2013 73875 Oxygen Level - Pulse Oximiter Completed 06/01/2013 11932 Xolair Completed 06/01/2013 78632 Xolair Completed 06/01/2013 48792 Oxygen Level - Pulse Oximiter Completed 05/18/2013 54017 Xolair Completed 05/18/2013 18580 Oxygen Level - Pulse Oximiter Completed 04/14/2013 56936 Xolair Completed 04/14/2013 91510 Oxygen Level - Pulse Oximiter Completed 03/21/2013 20627 Xolair Completed 03/21/2013 41461 Xolair Completed 02/09/2013 23119 Xolair Completed 02/09/2013 02632 Xolair Completed 01/21/2013 64370 Xolair Completed 01/21/2013 02806 Xolair Completed 01/21/2013 16991 Oxygen Level - Pulse Oximiter Completed 12/29/2012 13313 Xolair Completed 12/29/2012 66390 Oxygen Level - Pulse Oximiter Completed 12/15/2012 09408 Xolair Completed 12/01/2012 57365 Xolair Completed 11/17/2012 46274 Xolair Completed 09/29/2012 22256 Xolair Completed 08/27/2012 22125 Xolair Completed 08/27/2012 37360 Oxygen Level - Pulse Oximiter Completed 07/19/2012 70445 Xolair Completed 07/02/2012 18874 Xolair Completed 06/11/2012 23903 Xolair Completed 05/03/2012 59439 Xolair Completed 04/19/2012 40822 Xolair Completed 04/02/2012 93820 Xolair Completed 03/15/2012 30247 Xolair Completed 02/18/2012 80593 Xolair Completed 01/30/2012 31211 Xolair Completed 12/17/2011 41231 Xolair Completed 12/03/2011 69652 Xolair Completed 11/19/2011 55555 Xolair Completed 11/05/2011 77992 Xolair Completed 10/22/2011 94151 Xolair Completed 08/11/2011 86414 Xolair Completed 07/02/2011 35290 Xolair Completed 06/18/2011 66229 Xolair Completed 05/30/2011 22793 Xolair Completed 05/12/2011 63022 Xolair Completed 04/18/2011 36880 Xolair Completed 04/02/2011 75269 Xolair Completed 02/28/2011 08509 Xolair Completed 02/14/2011 66817 Xolair Completed 01/31/2011 94526 Xolair Completed 12/30/2010 63043 Xolair Completed 12/16/2010 65345 Xolair Completed 11/20/2010 80558 Xolair Completed 10/30/2010 71844 Xolair Completed 10/09/2010 83555 Xolair Completed 09/23/2010 80641 Xolair Completed 09/06/2010 44281 Xolair Completed 08/19/2010 38885 Xolair Completed 07/29/2010 20409 Xolair Completed 07/15/2010 18787 Xolair Completed 07/01/2010 59020 Xolair Completed 06/17/2010 02099 Xolair Completed 06/03/2010 91705 Xolair Completed 05/20/2010 01298 Xolair Completed 04/29/2010 54523 Xolair Completed 04/12/2010 24411 Xolair Completed 03/22/2010 43779 Xolair Completed 02/15/2010 00792 Xolair Completed 02/01/2010 76728 Xolair Completed 01/18/2010 37318 Xolair Completed 01/02/2010 11500 Xolair Completed 12/19/2009 53552 Xolair Completed 12/05/2009 53407 Xolair Completed 11/21/2009 88000 Xolair Completed 11/07/2009 72843 Xolair Completed 10/17/2009 09479 Xolair Completed 10/03/2009 49539 Xolair Completed 09/19/2009 22448 Xolair Completed 09/05/2009 55160 Xolair Completed 08/20/2009 37924 Xolair Completed 08/03/2009 22386 Xolair Completed 07/18/2009 15203 Xolair Completed 07/04/2009 15145 Xolair Completed 06/20/2009 10142 Xolair Completed 06/06/2009 98649 Xolair Completed 05/23/2009 22935 Xolair Completed 05/02/2009 74806 Xolair Completed 04/16/2009 58626 Xolair Completed 04/02/2009 19318 Xolair Completed 03/16/2009 64785 Xolair Completed 03/05/2009 66449 Xolair Completed 02/16/2009 94337 Xolair Completed 01/31/2009 45158 Xolair Completed 01/19/2009 01911 Xolair Completed 01/01/2009 68611 Xolair Completed 12/18/2008 05265 Xolair Completed 12/04/2008 88985 Xolair Completed 10/30/2008 06364 Xolair Completed 10/13/2008 20492 Xolair Completed 09/25/2008 06440 Xolair Completed 09/04/2008 08346 Xolair Completed 08/21/2008 14626 Xolair Completed 08/07/2008 02207 Xolair Completed 07/24/2008 87967 Xolair Completed 07/03/2008 94546 Xolair Completed 06/16/2008 42224 Xolair Completed 05/29/2008 05608 Xolair Completed 05/15/2008 60815 Xolair Completed 04/28/2008 59969 Xolair Completed 04/17/2008 23922 Xolair Completed 03/31/2008 02196 Xolair Completed 03/08/2008 85801 Xolair Completed 02/21/2008 98551 Xolair Completed 02/07/2008 58280 Xolair Completed 01/24/2008 60160 Xolair Completed 01/10/2008 02819 Xolair Completed 12/06/2007 30914 Xolair Completed 11/22/2007 63476 Xolair Completed 11/08/2007 74563 Xolair Completed 10/22/2007 00266 Xolair Completed 10/08/2007 02157 Xolair Completed 09/24/2007 18620 Xolair Completed 08/20/2007 02430 Xolair Completed 08/06/2007 68431 Xolair Completed 07/07/2007 81332 Xolair Completed 06/11/2007 04198 Xolair Completed 05/26/2007 71906 Xolair Completed 05/12/2007 36244 Xolair Completed 04/28/2007 99882 Xolair Completed 04/14/2007 98502 Xolair Completed 03/29/2007 90606 Xolair Completed 03/19/2007 93119 Drug Administration Completed 02/26/2007 48511 Xolair Completed 02/12/2007 52366 Xolair Completed 01/25/2007 78147 Xolair Completed 12/21/2006 20694 Xolair Completed 12/07/2006 93596 Xolair Completed 11/20/2006 62815 Xolair Completed 11/06/2006 45589 Xolair Completed 10/16/2006 33097 Xolair Completed 10/05/2006 46135 Xolair Completed 08/10/2006 67971 Pulmonary Function Test Completed Encounters Type Date Location Provider CPT E/M Dx Office Visit 02/20/2017 3:25p PENELOPE King 27004 J45.50 J30.1 J30.81 J30.2 Z68.30 Office Visit 02/20/2017 4:00p PENELOPE King 63782 J45.50 J30.1 J30.81 J30.2 Z68.30 Office Visit 03/21/2013 11:00a PENELOPE Ballesteros [id number] 493.00 477.8 477.0 Plan of Care 06/17/2018 - NELA Ortega-CJ45.50 Severe persistent asthma, [id number] Allergic rhinitis due to pljuinX90.81 Allergic rhinitis due to animal (cat) (dog) hair and yoipqxZ89.89 Other allergic [id number] Other seasonal allergic rhinitisRecommendations:Continue all medications as prescribed.Refrain from wearing perfumes/scented colognes while visitingour office. OK for Xolair today Continue Xolair 225mg every 2 weeks Continue the fexofenadine 1 daily. Continue the Proventil 2 puffs every 4 hours as needed for cough, shortness of breath, chest congestion, or wheezing.Monitor Albuterol use. If using more than 2x/week, please call the office as your asthma medications may need to be adjusted.
[2018-07-05 19:52] LABS: ABS Basophils 0 10^3/ul (0-0.2); ABS Eosinophils 0 10^3/ul (0-0.6); ABS Lymphocytes 1.7 10^3/ul (1.0-4.8); ABS Monocytes 0.5 10^3/ul (0-0.8); ABS Neutrophils 7.5 10^3/ul (1.5-7.7); ABS Nucleated RBC 0 10^3/ul; Eosinophil % 0.1 % (0-6); Hematocrit 38 % (35-47); Lymphocyte % 17.2 % (25-47); Mean Corpuscular HGB Conc 34 g/dl (31-36); Mean Corpuscular Hemoglobin 31 pg (27-31); Mean Corpuscular Volume 92 fL (80-97); Mean Platelet Volume 6.6 um3 (7.4-10.4); Nucleated Red Blood Cells % 0; Platelet Count 295 10^3/ul (150-450); Red Blood Count 4.18 10^6/ul (4.00-5.40); Red Cell Distribution Width 13 % (10.5-15); White Blood Count 9.8 10^3/ul (3.5-10.8)
== END 2018-07-05 20:39 | disposition left against medical advice (07) ==
LOC: ED 17:27
DX: R07.9 Chest pain, unspecified (principal); Z53.21 Procedure and treatment not carried out due to patient leaving prior to being seen by health care provider
CPT/HCPCS: 36415; 80053; 83605; 84484; 85025; 93005

== ENCOUNTER → 2019-06-22 | Day surgery (SDC) | payer BC ==
[~2019-06-22] MED LIST: Buffered Lidocaine 1% SYRIN* 1 ML/SYRINGE INTRADERM ONE; Bupivacaine 0.25% W/EPI* 10 ML SDV ONE; Bupivacaine 0.5%* 50 ML MDV VIAL ONE; Clindamycin 900 MG/D5W BAG(*) 900 MG/50 ML BAG IVPB ONE; Clindamycin 900 MG/D5W BAG(*) 900 MG/50 ML BAG IVPB SCH; Dexamethasone IV* 4 MG/ML 1 ML (4 MG) IV SLOW PU ONE; Dexamethasone IV* 4 MG/ML 1 ML (4 MG) ONE; DiMENhydriNATE IV* 50 MG/ML VIAL IV PUSH PRN; EPINEPHRINE 1 MG/ML 1 ML VIAL ONE; Famotidine IV* 10 MG/ML 2 ML (20 mg) IV ONE; Famotidine IV* 10 MG/ML 2 ML (20 mg) ONE; Ketorolac INJ* 30 MG/ML 1 ML VIAL IV PRN; Lactated Ringers 1000 ML Bag* 1,000 ML IV SCH; Lidocaine 2% PF * 5 ML VIAL ONE; Midazolam* 1 MG/ML 2 ML VIAL (2 MG) ONE; Naloxone* 0.4 MG/ML 1 ML VIAL IV PRN; Ondansetron INJ* 2 MG/ML VIAL ONE; ROPIVACAINE 5 MG/ML 30 ML BTL (0.5%) ONE; fentaNYL* 50 MCG/ML 2 ML VIAL (100 MCG VIAL) IV PRN; fentaNYL* 50 MCG/ML 2 ML VIAL (100 MCG VIAL) ONE
[2019-06-22 17:00] VITALS: BP 113/67
--- NOTE | 2019-06-23 05:47 | OP ---
DATE OF OPERATION: 06/22/19 - [facility] DATE OF : 64 SURGEON: Abhilash Kidd MD CAGE MAKER MACHINE: CHRISTINA Almodovar. A physician butcher's assistant was required for the length of the procedure for help with positioning, instrumentation, and closure. ANESTHESIOLOGIST: Dr. Supa Underwood. ANESTHESIA: General anesthesia, regional interscalene block anesthesia. PRE-OP DIAGNOSES: 1. Right shoulder calcific rotator cuff tendinitis. 2. Right shoulder subacromial impingement and bursitis. 3. Right shoulder acromioclavicular joint osteoarthritis. 4. Likely right shoulder long head biceps tendinosis. POST-OP DIAGNOSES: 1. Right shoulder calcific rotator cuff tendinitis. 2. Right shoulder partial thickness bursal-sided supraspinatus rotator cuff tendon tear. 3. Right shoulder subacromial impingement and bursitis. 4. Right shoulder acromioclavicular joint osteoarthritis. 5. No superior labral tear nor any biceps tendinosis. OPERATIVE PROCEDURE: 1. Right shoulder arthroscopic rotator cuff tendon repair, anterior, supraspinatus with [id number] stitch and Regeneten biologic patch. 2. Right shoulder arthroscopic subacromial decompression. 3. Right shoulder arthroscopic distal clavicle resection. 4. Right shoulder arthroscopic limited debridement including debridement of calcifications from supraspinatus tendon. ANTIBIOTICS: Ancef 2 g IV. IV FLUIDS: See anesthesia note. XDSS-ID-CTGB TIME: 98 minutes. SPECIMEN: None. IMPLANTS: [employer] Regeneten biologic patch, size medium, x1; 1 suture , FiberWire #2. COMPLICATIONS: None. ESTIMATED BLOOD LOSS: Minimal. INDICATIONS FOR PROCEDURE: The patient is a 59-year-old woman, with pain since April 2018, who had seen two of my colleagues and then saw me. The patient responded insufficiently to nonoperative management and opted for surgery. Discussed risks and potential complications of surgery. Discussed different ways of treating a possible superior labrum or biceps tear and we were leading towards release unless tenodesis would seem more appropriate to me intraoperative. The patient was booked for possible manipulation under anesthesia. I had discussed risks and potential complications of surgery. DESCRIPTION OF PROCEDURE: In the preoperative holding, the patient signed a written consent. Operative extremity was marked in preoperative holding. The patient underwent interscalene regional nerve block by Anesthesia in preoperative holding. The patient was taken to the operating room and placed supine on the operating room table. Sedated and intubated. I performed a mini time-out. I performed an examination under anesthesia of the patient's right shoulder. I found the patient to have nearly full range of motion. She had passively 170 degrees of forward flexion, 95 degrees of external , 70 degrees of internal rotation. When I tried to manipulate the shoulder lightly, I could not get an additional amount of forward flexion or internal rotation of the shoulder. The patient was turned into lateral decubitus position. Axillary roll. Fernando bag hardened. Longitudinal traction, right shoulder 15 pounds. Fernando bag hardened. All bony prominences padded. The right shoulder was prepped and draped. Surgical time-out was performed. Spinal needle was infused and injected right shoulder glenohumeral joint with 30 cc of normal saline. Entered a cannula, created posterior portal. Started diagnostic arthroscopy. I noted the capsule to be patulous and not hyperemic, so no evidence arthroscopically of capsulitis. I created an anterior portal under direct visualization. I probed the superior labrum and biceps tendon. No tear whatsoever. No hyperemia or fibrotic or torn tissue. Posterior superior labrum seemed to have some extra tissue and I just lightly smoothed it out with an arthroscopic shaver , but no underlying tear present. No articular cartilage injury or loose body. No subscapularis tear. The supraspinatus crescent tissue appeared little atypical, but there was no undersurface tear appreciable. I placed a needle through it and some calcification entered the glenohumeral joint. I moved to the subacromial space. Significant subacromial bursitis that I debrided with an arthroscopic shaver entered from lateral. I next released the patient's very de la paz coracoacromial ligament with a cautery device. I performed a subacromial decompression using an arthroscopic deshaun removing the anterior curve of the acromion. I next addressed the rotator cuff. Where the needle had been placed, there was clearly some torn tissue. The calcium was almost visible without any probing. I used the blunt end of a switching stick along with an arthroscopic probe. This quickly released much calcification. Some of it was in the form of dust or sand while other parts of the calcium were in larger fragments. I only very briefly during my debridement used the shaver. Most of the time, I just used these probes to minimize any damage to the surrounding rotator tendon tissue. Once the calcification had been removed, there was a crater of tendon missing. I evaluated the remaining tendon, inferior to this crater, both from the subacromial as well as from the glenohumeral joint side, both visibly, by palpation with probe, and as I placed spinal needle through it to gauge the amount of tendon still intact. Ultimately, I was deciding between taking the cuff down and repairing it with a suture anchor or adding a suture anchor without taking the tissue down versus just using a biologic patch. Because there seemed to be so much tendon still intact, I decided to do a patch. As well, much of the defect in the tissue seemed a split, longitudinal. Therefore , I decided to first place a [id number]-[id number] suture. I placed using a retrograde suture passing device. I used #2 FiberWire suture and this brought tendon-to- tendon tissue nicely. I next, through a lateral portal, placed the Regeneten biologic patch, size medium, over the area where the calcifications had been enucleated. I held the patch and placed with PLLA gary. The patch was very stable in place. I should clarify that I actually did the subacromial decompression after I released all the calcifications, but before I placed the biologic patch. After placing the patch, I moved to the AC joint. Because of the changes present on preoperative MRI, I decided to do a distal clavicle resection. Using an arthroscopic deshaun, I removed 8 mm of the distal end of the clavicle. I removed instruments and fluids from the subacromial space. I closed skin incisions with [id number] in 12 stitches using nylon 3-0 suture. Xeroform , 4x4s, ABDs, foam tape. Sling and abduction pillow. The patient was awakened , extubated, and transferred to the PACU. DISPOSITION: The patient was discharged home with Percocet as needed for pain control. The patient will start physical therapy immediately according to Regeneten biologic patch protocol. The patient will be in a sling for 2 to 3 weeks per protocol. Wound care instructions as provided. [id number]/[facility] #: [id number] [place]
== END | disposition home or self-care (01) ==
LOC: OR 11:39
PROVIDERS: ATTEND Orthopaedic Surgery
DX: M75.31 Calcific tendinitis of right shoulder (principal); M75.111 Incomplete rotator cuff tear or rupture of right shoulder, not specified as traumatic; M19.011 Primary osteoarthritis, right shoulder; M25.511 Pain in right shoulder; M75.41 Impingement syndrome of right shoulder; M75.51 Bursitis of right shoulder; G89.18 Other acute postprocedural pain; J45.909 Unspecified asthma, uncomplicated; M19.90 Unspecified osteoarthritis, unspecified site
CPT/HCPCS: C1713; J1100; J2250; J2405; J2795; J3010; J3490